=== PATIENT | female | born 2005 | race African-American/Black ===

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

== ENCOUNTER 2024-01-20 16:54 | Emergency (ER) | payer SELFPAY ==
[~2024-01-20] VITALS: Ht 162.6 cm; Wt 54.0 kg
[2024-01-20 17:02] VITALS: BP 120/64; PULSE 100; RESP 18; TEMP 98; O2SAT 100
[2024-01-20] MEDS ORDERED: BO1 TP (18:16)
[2024-01-20] MEDS: NEOMYCIN/BACITRACIN/POLYMYXIN OINT 14GM TOP SCH (18:24)
== END 2024-01-20 18:24 | disposition home or self-care (01) ==
LOC: ER 16:54
DX: S99.911A Unspecified injury of right ankle, initial encounter (principal); M25.571 Pain in right ankle and joints of right foot; J45.909 Unspecified asthma, uncomplicated; Z79.899 Other long term (current) drug therapy; X58.XXXA Exposure to other specified factors, initial encounter; Y93.89 Activity, other specified; Y92.89 Other specified places as the place of occurrence of the external cause; Y99.8 Other external cause status
CPT/HCPCS: 73590; 73610; 99284

== ENCOUNTER 2024-02-07 15:31 | Emergency (ER) | payer MEDICAID ==
[~2024-02-07] VITALS: Ht 162.6 cm; Wt 55.0 kg
[~2024-02-07 15:31] MED LIST changes: +BO1 TP
[2024-02-07 16:01] VITALS: BP 111/69; PULSE 74; RESP 16; TEMP 98.3; O2SAT 98
== END 2024-02-07 21:14 | disposition left against medical advice (07) ==
LOC: ER 15:31
DX: R10.9 Unspecified abdominal pain (principal); Z53.21 Procedure and treatment not carried out due to patient leaving prior to being seen by health care provider

== ENCOUNTER 2024-02-09 08:46 | Emergency (ER) | payer MEDICAID ==
[~2024-02-09] VITALS: Ht 162.6 cm; Wt 54.0 kg
[2024-02-09] MEDS ORDERED: ONDANSETRON 4MG ODT PO ONE (09:15)
[2024-02-09 09:23] VITALS: O2SAT 100
[2024-02-09 09:26] VITALS: BP 103/64; PULSE 72; RESP 16; TEMP 36.83628; O2SAT 100
[2024-02-09 09:41] LABS: BASOPHILS % 0.7 % (0.0-2.0); EOSINOPHILS % 2.5 % (0.0-5.0); HEMATOCRIT. 41.1 % (36.0-48.0); HEMOGLOBIN. 13.7 g/dL (12.0-16.0); LYMPHOCYTES % 20.5 % (20.0-50.0); MEAN CORPUSCULAR HGB CONC 33.4 g/dL (31.0-37.0); MEAN CORPUSCULAR VOLUME 86.9 fL (81.0-99.0); MEAN PLATELET VOLUME 7.3 fl (7.4-10.4); MONOCYTES % 6.5 % (2.0-8.0); NEUTROPHILS % 69.8 % (40.0-76.0); PLATELET 308 x1000/uL (130-400); RED BLOOD CELL COUNT 4.72 mill/uL (4.2-5.4); RED CELL DISTRIBUTION WIDTH 14.4 % (11.6-14.6); WHITE BLOOD COUNT 6.8 x1000/uL (4.5-11.0)
[2024-02-09 09:51] LABS: CHLORIDE 102 mEq/L (98-107); POTASSIUM 3.5 mEq/L (3.5-5.1); SODIUM 135 mEq/L (136-145)
[2024-02-09 09:52] LABS: CARBON DIOXIDE 21 mEq/L (21-32)
[2024-02-09 09:53] LABS: CALCIUM 11.3 mg/dL (8.7-10.4)
[2024-02-09 09:57] LABS: CREATININE 0.8 mg/dL (0.6-1.0); GLUCOSE 76 mg/dL (70-105); UREA NITROGEN BLOOD 9 mg/dL (9-23)
[2024-02-09 09:59] LABS: ALANINE AMINOTRANSFERASE 27 IU/L (10-49); ALBUMIN 5.1 g/dL (3.2-4.8); ASPARTATE AMINOTRANSFERASE 27 IU/L (<34)
[2024-02-09 10:00] LABS: PROTEIN TOTAL 8.2 g/dL (6.0-8.3)
[2024-02-09 10:02] LABS: HCG SCREEN POSITIVE
[2024-02-09 11:09] LABS: CLARITY URINE CLOUDY (CLEAR); COLOR URINE YELLOW (YELLOW); GLUCOSE URINE NEGATIVE (NEGATIVE); KETONES URINE 3+ (NEGATIVE); LEUKOCYTE ESTERASE URINE NEGATIVE (NEGATIVE); NITRITE URINE NEGATIVE (NEGATIVE); OCCULT BLOOD URINE NEGATIVE (NEGATIVE); PH URINE 5.5 (4.5-8.0); PROTEIN URINE 1+ (NEGATIVE)
[2024-02-09] MEDS ORDERED: PREN-118 MT (11:21)
[2024-02-09] MEDS ORDERED: ONDA-239 PO (11:21)
[2024-02-09 11:23] LABS: BACTERIA URINE 4+; RBC URINE 0-2 /hpf (0-2); SQUAMOUS EPITHELIAL CELL URINE 3+ /lpf (RARE/1+); YEAST URINE NONE SEEN
== END 2024-02-09 11:50 | disposition home or self-care (01) ==
LOC: ER 08:48
DX: O26.899 Other specified pregnancy related conditions, unspecified trimester (principal); O26.891 Other specified pregnancy related conditions, first trimester; J45.909 Unspecified asthma, uncomplicated; R11.2 Nausea with vomiting, unspecified; Z79.899 Other long term (current) drug therapy; Z3A.00 Weeks of gestation of pregnancy not specified
CPT/HCPCS: 99283; 80053; 81003; 81025; 84703; 83690; 85025; 36415; Q0162